=== PATIENT | male | born 1935 | race Caucasian/White ===

== ENCOUNTER 2016-11-13 15:21 | Outpatient (CLI) | payer MEDICARE ==
--- NOTE | 2016-11-13 22:16 | RAD ---
CERVICAL SPINE 11/13/2016 There is mild disk space narrowing at C5-C6. The other disk spaces were more normal. The C1 to den s distance is normal, and the soft tissues are normal in thickness. No fracture was seen. There is some very minimal encroachment on the neural foramina at C3-C4 and C5-C6 on the right side due to t iny osteophytes. Though the degree of rotation is not optimal, there may be some more significant s tenosis on the left at C3-C4 and C4-C5. Cross-sectional imaging would be needed to prove this. IMPRESSION: Degenerative changes noted with disk space narrowing at C5-C6 and suggestions of slight foraminal na rrowing above this. MRI recommended if further workup is needed. POS: HOME
== END 2016-11-13 15:22 | disposition home or self-care (01) ==
LOC: BURRAD 15:21
PROVIDERS: ATTEND Family Medicine
DX: M62.838 Other muscle spasm (principal); M47.812 Spondylosis without myelopathy or radiculopathy, cervical region; M48.02 Spinal stenosis, cervical region
CPT/HCPCS: 72050

== ENCOUNTER 2017-04-08 11:50 | Outpatient (CLI) | payer MEDICARE ==
--- NOTE | 2017-04-08 18:49 | RAD ---
CHEST TWO VIEWS: Date: 04-08-17 Comparison: None. FINDINGS: The lungs are mildly hyperexpanded but clear. There was no sign of pneumonia or pleural effusion. The mediastinum was unremarkable. Faint calcification is probably present in the aortic arch. A small ca lcified granuloma is seen in the left lung base. Mild degenerative changes of the spine were seen. IMPRESSION: No acute thoracic findings. At most, slight hyperinflation. POS: HOME
== END 2017-04-08 11:51 | disposition home or self-care (01) ==
LOC: BURRAD 11:50
PROVIDERS: ATTEND Family Medicine
DX: J40 Bronchitis, not specified as acute or chronic (principal); R91.8 Other nonspecific abnormal finding of lung field
CPT/HCPCS: 71020

== ENCOUNTER 2019-10-13 12:24 | Outpatient (CLI) | payer MEDICARE ==
[2019-10-13 12:51] LABS: #Basophils 0.1 thou/uL (0.0-0.2); #Eosinphils 0.3 thou/uL (0.0-0.7); #Lymphocytes 2.2 thou/uL (1.20-3.40); #Monocytes 0.6 thou/uL (0.11-0.59); #Neutrophils 4.4 thou/uL (1.40-6.50); %Basophils 1.1 % (0.0-1.0); %Eosinophils 3.7 % (0.0-10.0); %Monocytes 7.6 % (0.0-10.0); %Neutrophils 58.7 % (42.0-75.0); Hemoglobin 17.4 g/dL (14.0-18.0); Mean Corpuscular HGB CONC 30.7 g/dL (32.0-36.0); Mean Corpuscular Hemoglobin 29.9 pg (27.0-31.0); Mean Corpuscular Volume 97.5 fL (78.0-98.0); Mean Platelet Volume 7.6 fL (7.4-10.4); Platelet Count 232 thou/uL (130-400); RBC Distribution Width 11.2 % (11.5-14.5); Red Blood Cell (RBC) Count 5.81 mill/uL (4.70-6.10); White Blood Cell (WBC) Count 7.5 thou/uL (4.8-10.8)
[2019-10-13 13:08] LABS: Anion Gap 17 mmol/L (10-20); BUN (Urea Nitrogen) 18 mg/dL (8.4-25.7); Calc. Creatinine Clearance 0 mL/min (70-130); Calcium 8.7 mg/dL (7.8-10.44); Carbon Dioxide 25 mmol/L (23-31); Chloride 101 mmol/L (98-107); Estimated GFR-MDRD 69; Glucose 101 mg/dL (83-110); Potassium 3.7 mmol/L (3.5-5.1); Sodium 139 mmol/L (136-145)
--- NOTE | 2019-10-13 17:49 | RAD ---
CHEST TWO VIEWS: 10/13/19 Comparison is made with the 04/08/17 study. The heat remains normal in size and the lungs are clear. No infiltrate or effusion was seen. Few faisal cified granulomas are seen in the left lung as before. The lungs are mildly hyperexpanded. Degenerati ve changes are prominent in the thoracic spine. IMPRESSION: No acute thoracic findings. Mildly hyperexpanded lungs, unchanged from 2017. POS: HOME
== END 2019-10-13 12:25 | disposition home or self-care (01) ==
LOC: BURRAD 12:24
PROVIDERS: ATTEND Family Medicine
DX: Z01.818 Encounter for other preprocedural examination (principal); R91.8 Other nonspecific abnormal finding of lung field
CPT/HCPCS: 36415; 71046; 80048; 85025; 93005; 93010

== ENCOUNTER 2020-12-31 15:17 | Emergency (ER) | payer MEDICARE ==
[~2020-12-31 15:17] MED LIST: Iopamidol 370 76% 100 ML VIAL ONE
[2020-12-31 15:38] LABS: #Basophils 0.1 thou/uL (0.0-0.2); #Eosinphils 0.2 thou/uL (0.0-0.7); #Lymphocytes 2.2 thou/uL (1.20-3.40); #Monocytes 0.7 thou/uL (0.11-0.59); #Neutrophils 5.6 thou/uL (1.40-6.50); %Eosinophils 1.9 % (0.0-10.0); %Lymphocytes 25.1 % (21.0-51.0); %Monocytes 7.6 % (0.0-10.0); %Neutrophils 64.5 % (42.0-75.0); Hemoglobin 17.8 g/dL (14.0-18.0); Mean Corpuscular HGB CONC 30.6 g/dL (32.0-36.0); Mean Corpuscular Hemoglobin 30.7 pg (27.0-31.0); Mean Platelet Volume 7.8 fL (7.4-10.4); Platelet Count 185 thou/uL (130-400); RBC Distribution Width 11.9 % (11.5-14.5); White Blood Cell (WBC) Count 8.7 thou/uL (4.8-10.8)
[2020-12-31 15:45] LABS: INR-International Normal Ratio 1.1; PTT 28.5 sec (22.9-36.1); Prothrombin Time 14.1 sec (12.0-14.7)
[2020-12-31] MEDS ORDERED: Aspirin Chewable 81 MG TAB ONE (15:52)
[2020-12-31 15:55] LABS: ALT (SGPT) 22 U/L (8-55); AST (SGOT) 26 U/L (5-34); Albumin 4.3 g/dL (3.4-4.8); Alkaline Phosphatase 82 U/L (40-110); Anion Gap 14 mmol/L (10-20); BUN (Urea Nitrogen) 18 mg/dL (8.4-25.7); Bilirubin, Total 0.7 mg/dL (0.2-1.2); Calc. Creatinine Clearance 0 mL/min (70-130); Calcium 9.1 mg/dL (7.8-10.44); Carbon Dioxide 27 mmol/L (23-31); Chloride 106 mmol/L (98-107); Glucose 141 mg/dL (83-110); Potassium 3.8 mmol/L (3.5-5.1); Protein, Total 7.3 g/dL (5.8-8.1); Sodium 143 mmol/L (136-145)
[2020-12-31 17:32] LABS: Bilirubin Negative (Negative); Blood, Urine Trace (Negative); Clarity Clear (Clear); Glucose, Urine (Dipstick) Negative (Negative); Ketone, Urine Negative (Negative); Leukocyte Negative (Negative); Nitrite Negative (Negative); Protein, Urine (Dipstick) Negative (Neg-Trace); Specific Gravity, Urine 1.015 (1.005-1.030)
[2020-12-31 17:37] LABS: Bacteria/HPF 1+ HPF (None Seen); Mucous/LPF Rare LPF (<2+); RBC/HPF 0-3 HPF (0-3); Squamous Epithelial 0-3 HPF (0-3); WBC/HPF 0-3 HPF (0-3)
[2020-12-31 18:26] LABS: SARS-CoV-2 NAA Rapid Test Not Detected (NotDetected)
== END 2020-12-31 16:12 | disposition short-term general hospital (02) ==
LOC: BURERS 15:17
DX: I63.9 Cerebral infarction, unspecified (principal); I65.22 Occlusion and stenosis of left carotid artery; Z20.822 Contact with and (suspected) exposure to COVID-19; Z87.891 Personal history of nicotine dependence
CPT/HCPCS: 0042T; 70450; 70496; 70498; 71045; 80053; 83880; 84484; 85025; 85610; 85730; 87804 ×2; 93005; 94760; U0002; 81003; 81015; Q9967

== ENCOUNTER 2021-02-12 12:38 | Emergency (ER) | payer MEDICARE ==
[2021-02-12] MEDS ORDERED: Silver Nitrate Application 1 EACH ONE (12:58)
[2021-02-12] MEDS ORDERED: Ketorolac Tromethamine 60 MG/2 ML VIAL ONE (13:13)
== END 2021-02-12 13:18 | disposition home or self-care (01) ==
LOC: BURERS 12:38
DX: M96.831 Postprocedural hemorrhage of a musculoskeletal structure following other procedure (principal); L08.9 Local infection of the skin and subcutaneous tissue, unspecified; Z86.73 Personal history of transient ischemic attack (TIA), and cerebral infarction without residual deficits; Z87.891 Personal history of nicotine dependence; Z79.82 Long term (current) use of aspirin; Z79.899 Other long term (current) drug therapy
CPT/HCPCS: 96372; 99283; J1885

== ENCOUNTER 2022-01-30 09:34 | Emergency (ER) | payer MEDICARE | END 2022-01-30 10:30 | disposition home or self-care (01) | LOC: BURERS 09:34 | DX: J30.9 Allergic rhinitis, unspecified (principal); E78.5 Hyperlipidemia, unspecified; I10 Essential (primary) hypertension; Z86.73 Personal history of transient ischemic attack (TIA), and cerebral infarction without residual deficits; Z87.891 Personal history of nicotine dependence; Z79.899 Other long term (current) drug therapy | CPT/HCPCS: 99283 ==

== ENCOUNTER 2022-03-15 12:07 | Outpatient (CLI) | payer MEDICARE | END 2022-03-15 12:08 | disposition home or self-care (01) | LOC: BURRAD 12:07 | PROVIDERS: ATTEND Nurse Practitioner Family | DX: R06.2 Wheezing (principal); R05.9 Cough, unspecified; J44.9 Chronic obstructive pulmonary disease, unspecified | CPT/HCPCS: 71046 ==

== ENCOUNTER 2022-05-24 16:59 | Emergency (ER) | payer MEDICARE ==
[2022-05-24] MEDS ORDERED: Ipratropium/Albuterol 3 ML NEB ONE ×2 (17:41→18:56)
[2022-05-24 18:13] LABS: #Basophils 0.1 thou/uL (0.0-0.2); #Eosinphils 0.8 thou/uL (0.0-0.7); #Lymphocytes 1.7 thou/uL (1.20-3.40); #Monocytes 0.6 thou/uL (0.11-0.59); #Neutrophils 4.2 thou/uL (1.40-6.50); %Basophils 1.1 % (0.0-1.0); %Eosinophils 10.8 % (0.0-10.0); %Lymphocytes 23.3 % (21.0-51.0); %Monocytes 8.2 % (0.0-10.0); %Neutrophils 56.6 % (42.0-75.0); Hemoglobin 16.6 g/dL (14.0-18.0); Mean Corpuscular HGB CONC 32.6 g/dL (32.0-36.0); Mean Corpuscular Hemoglobin 32.9 pg (27.0-31.0); Mean Platelet Volume 7.5 fL (7.4-10.4); Platelet Count 224 10x3/uL (130-400); RBC Distribution Width 11.6 % (11.5-14.5); Red Blood Cell (RBC) Count 5.04 mill/uL (4.70-6.10); White Blood Cell (WBC) Count 7.3 10x3/uL (4.8-10.8)
[2022-05-24] MEDS ORDERED: Dexamethasone 10 MG/ML VIAL ONE (18:40)
[2022-05-24 18:46] LABS: Anion Gap 12 mmol/L (10-20); BUN (Urea Nitrogen) 19 mg/dL (8.4-25.7); Calc. Creatinine Clearance 0 mL/min (70-130); Calcium 9.5 mg/dL (7.8-10.44); Carbon Dioxide 28 mmol/L (23-31); Chloride 105 mmol/L (98-107); Estimated GFR 74; Glucose 101 mg/dL (83-110); Potassium 4.3 mmol/L (3.5-5.1); Sodium 141 mmol/L (136-145)
[2022-05-24] MEDS ORDERED: Doxycycline 100 MG CAP ONE (18:56)
== END 2022-05-24 19:15 | disposition home or self-care (01) ==
LOC: BURERS 16:59
DX: J22 Unspecified acute lower respiratory infection (principal); E78.00 Pure hypercholesterolemia, unspecified; I10 Essential (primary) hypertension; Z86.73 Personal history of transient ischemic attack (TIA), and cerebral infarction without residual deficits; Z87.891 Personal history of nicotine dependence; Z79.899 Other long term (current) drug therapy
CPT/HCPCS: 36415; 71045; 80048; 85025; 96372; J1100; J7620

== ENCOUNTER 2024-01-23 17:26 | Emergency (ER) | payer MEDICARE ==
[2024-01-23] MEDS ORDERED: Ipratropium/Albuterol 3 ML NEB ONE (17:51)
[2024-01-23] MEDS ORDERED: methylPREDNISolone Sod Succ/PF 125 MG/2 ML VIAL ONE (17:51)
[2024-01-23 18:01] LABS: #Basophils 0.1 thou/uL (0.0-0.2); #Lymphocytes 0.8 thou/uL (1.20-3.40); #Monocytes 0.3 thou/uL (0.11-0.59); #Neutrophils 2.7 thou/uL (1.40-6.50); %Basophils 2.5 % (0.0-1.0); %Eosinophils 0.8 % (0.0-10.0); %Lymphocytes 19.7 % (21.0-51.0); %Monocytes 8.8 % (0.0-10.0); %Neutrophils 68.3 % (42.0-75.0); Hematocrit 42.9 % (42.0-52.0); Hemoglobin 14.3 g/dL (14.0-18.0); Mean Corpuscular HGB CONC 33.4 g/dL (32.0-36.0); Mean Corpuscular Hemoglobin 30.1 pg (27.0-31.0); Mean Corpuscular Volume 90.2 fl (78.0-98.0); Mean Platelet Volume 6.7 fL (7.4-10.4); Platelet Count 109 10x3/uL (130-400); RBC Distribution Width 12.6 % (11.5-14.5); Red Blood Cell (RBC) Count 4.75 mill/uL (4.70-6.10); White Blood Cell (WBC) Count 3.9 10x3/uL (4.8-10.8)
[2024-01-23 18:17] LABS: ALT (SGPT) 31 U/L (8-55); AST (SGOT) 29 U/L (5-34); Albumin 3.5 g/dL (3.4-4.8); Alkaline Phosphatase 94 U/L (40-110); Anion Gap 13 mmol/L (10-20); BUN (Urea Nitrogen) 16 mg/dL (8.4-25.7); Bilirubin, Total 0.4 mg/dL (0.2-1.2); Calc. Creatinine Clearance 0 mL/min (70-130); Calcium 8.9 mg/dL (7.8-10.44); Carbon Dioxide 24 mmol/L (23-31); Chloride 105 mmol/L (98-107); Estimated GFR 72; Glucose 125 mg/dL (83-110); Potassium 4.2 mmol/L (3.5-5.1); Protein, Total 6.5 g/dL (5.8-8.1); Sodium 138 mmol/L (136-145)
[2024-01-23 18:18] LABS: Troponin I Less than 0.010 ng/mL (< 0.028)
[2024-01-23 18:31] LABS: SARS-CoV-2 E Target Positive; SARS-CoV-2 N2 Target Positive; SARS-CoV-2 NAA Rapid Test DETECTED (NotDetected); SARS-CoV-2 RdRP gene Positive
[2024-01-23 18:38] LABS: Platelet Adequacy Comment Platelets Decreased
[2024-01-23 18:39] LABS: MDiff Complete? YES
== END 2024-01-23 20:10 | disposition home or self-care (01) ==
LOC: BURERS 17:26
DX: U07.1 COVID-19 (principal); I10 Essential (primary) hypertension; Z87.891 Personal history of nicotine dependence
CPT/HCPCS: 36415; 71045; 71275; 80053; 83880; 84484; 85025; 85379; 87040; 87804; 93005; 94760; 96374; J2919; J7620; Q9967; U0002

== ENCOUNTER 2024-12-25 10:36 | Outpatient (CLI) | payer MEDICARE | END 2024-12-25 10:37 | disposition home or self-care (01) | LOC: BURRAD 10:36 | PROVIDERS: ATTEND Family Medicine | DX: J43.9 Emphysema, unspecified (principal) | CPT/HCPCS: 71046 ==

== ENCOUNTER 2025-02-02 16:45 | Emergency (ER) | payer MEDICARE ==
[2025-02-02] MEDS ORDERED: Acetaminophen 500 MG TAB ONE (17:57)
[2025-02-02] MEDS ORDERED: Dexamethasone 10 MG/ML VIAL ONE (17:57)
[2025-02-02] MEDS ORDERED: Ketorolac Tromethamine 30 MG (1 mL) VIAL ONE (17:57)
== END 2025-02-02 19:54 | disposition home or self-care (01) ==
LOC: BURERS 16:45
DX: J15.9 Unspecified bacterial pneumonia (principal); J44.1 Chronic obstructive pulmonary disease with (acute) exacerbation; E78.00 Pure hypercholesterolemia, unspecified; Z87.891 Personal history of nicotine dependence; Z79.899 Other long term (current) drug therapy; Z86.73 Personal history of transient ischemic attack (TIA), and cerebral infarction without residual deficits; Z79.51 Long term (current) use of inhaled steroids
CPT/HCPCS: 71045; 87400; 87426; 96372; J1100; J1885